=== PATIENT | male | born 1960 | race Caucasian/White ===

== ENCOUNTER 2019-01-30 09:28 | Inpatient (IN) | payer MEDICAID, OTHER ==
[~2019-01-30] VITALS: Ht 172.7 cm; Wt 61.3 kg
[2019-01-30] MEDS: methylPREDNISolone SOD SUCC 125 MG/2 ML VL IV ONE ×2 (09:48→09:50)
[2019-01-30 09:57] VITALS: BP 138/98
[2019-01-30 10:02] LABS: Basophils # (auto) 0.1 uL; Basophils % (auto) 0.9 % (0.0-2.0); Eosinophils # (auto) 0 uL; Eosinophils % (auto) 0.2 % (0.0-7.0); Hematocrit 45.2 % (41.0-53.0); Hemoglobin 15.7 g/dL (13.5-17.5); Lymphocytes # (auto) 1.6 uL; Lymphocytes % (auto) 21.6 % (10.0-50.0); Mean Corpuscular Hemoglobin 31.4 pg (28.0-32.0); Mean Corpuscular Hgb Conc. 34.8 g/dL (32.0-36.0); Mean Corpuscular Volume 90.2 fL (80.0-100.0); Monocytes # (auto) 0.5 uL; Monocytes % (auto) 7.1 % (0.0-12.0); Neutrophils # (auto) 5.3 uL; Neutrophils % (auto) 70.2 % (37.0-80.0); Nucleated Red Blood Cells % 0.1 %; Platelet Count (auto) 177 10^3/uL (140-450); Red Blood Cells 5.02 10^6/uL (4.5-5.90); Red Cell Distribution Width 13.9 % (11.8-14.3); White Blood Cell 7.6 10^3/uL (4.4-10.8)
[2019-01-30 10:20] LABS: Albumin 4.1 g/dL (3.4-5.0); Calcium 9.4 mg/dL (8.5-10.1); Magnesium 1.9 mg/dL (1.6-2.6); Potassium 3.8 mmol/L (3.5-5.1)
[2019-01-30 10:26] LABS: BUN/Creatinine Ratio 15.4; Bilirubin, Total 0.6 mg/dL (0.2-1.0); INR 0.96 (0.9-1.15)
[2019-01-30] MEDS ORDERED: MORPHINE SULFATE 4 MG/ML SYR/VIAL IV ONE (10:45)
[2019-01-30] MEDS ORDERED: ONDANSETRON HCL 4 MG/2 ML VIAL IV ONE (10:45)
[2019-01-30 11:10] VITALS: BP 116/87
[2019-01-30 11:30] VITALS: BP 116/87
[2019-01-30] MEDS ORDERED: ALBUTEROL SULF 2.5 MG/0.5ML(0.5%) NEB SOLN NEB ONE (11:30)
[2019-01-30] MEDS ORDERED: IPRATROPIUM BROM 0.5 MG/2.5ML INH SOL NEB ONE (11:30)
[2019-01-30] MEDS ORDERED: FUROSEMIDE 20 MG/2 ML VIAL IV ONE (12:00)
[2019-01-30] MEDS ORDERED: LEVOFLOXACIN 500MG 100 ML IV ONE (12:30)
[2019-01-30] MEDS ORDERED: ENOXAPARIN SOD 80 MG/0.8ML SYRINGE SC ONE (12:30)
[2019-01-30 13:22] LABS: Urine Bacteria NONE SEEN /hpf (None Seen); Urine Blood Negative /uL (Negative); Urine Hyaline Cast FEW /lpf (0 - 2); Urine Mucus FEW (None Seen); Urine Specific Gravity 1.013 (1.001-1.035); Urine WBC 2 /hpf (0 - 3)
[2019-01-30] MEDS ORDERED: ASPirin 81 mg TAB PO ONE (14:00)
[2019-01-30] MEDS ORDERED: NITROGLYCERIN 0.4 MG SL TAB SL PRN (14:00)
[2019-01-30] MEDS ORDERED: ACETAMINOPHEN 500 MG TAB PO PRN (14:00)
[2019-01-30] MEDS ORDERED: NICOTINE 21MG/24 HR TOPICAL PATCH TD ONE (14:00)
[2019-01-30] MEDS ORDERED: MORPHINE SULF INJ 2 MG/ML SYRINGE 1ML IV PRN (14:00)
[2019-01-30] MEDS ORDERED: ONDANSETRON HCL 4 MG/2 ML VIAL IV PRN (14:00)
[2019-01-30] MEDS: MORPHINE SULF INJ 2 MG/ML SYRINGE 1ML IV PRN (14:27)
[2019-01-30] MEDS: LORazepam 2MG/ML-1ML VIAL IV PRN (14:27)
[2019-01-30] MEDS: SODIUM CHLORIDE 0.9% 1,000 ML IV SCH ×2 (14:28→23:03)
--- NOTE | 2019-01-30 16:00 | NUR ---
Telemetry admit from [facility] admitted to Telemetry unit after SBAR received. Patient oriented to Josefina Ewing, primary RN, unit, room, bed, and unit policies regarding patient care and visiting hours. Patient now on continuous telemetry monitoring, tele box #[id number] and telemetry reading on arrival to unit is ST. Patient placed on bedside oxygen, weighed by bedscale and encouraged to call if they need something. All questions and concerns addressed, patient verbalized understanding.
[2019-01-30 17:00] VITALS: BP 108/69
[2019-01-30] MEDS: traMADol HCL 50 MG TAB PO PRN (17:16)
[2019-01-30] MEDS ORDERED: POTASSIUM CHL 20 Meq TABLET PO ONE (17:45)
[2019-01-30] MEDS ORDERED: MAGNESIUM OXIDE 400 MG TAB PO ONE (17:45)
--- NOTE | 2019-01-30 18:28 | NUR ---
MRSA SWAB COLLECTED FROM RIGHT AND LEFT NARES. SENT TO LAB VIA [employer] [facility].
--- NOTE | 2019-01-30 18:58 | NUR ---
CLOSING NOTE PATIENT COMFORTABLY RESTING IN BED WITH 2L NC, NO S/S OF DISTRESS/SOB NOTED. BED AT LOWEST LOCKED POSITION, BED SIDE RAILS UP X2 AND CALL LIGHT WITHIN REACH. WILL ENDORSE CARE TO NOC RN.
[2019-01-30] MEDS: BUDESONIDE (INHALATION) 0.5 MG/2 ML NEB NEB SCH (19:06)
[2019-01-30] MEDS: ALBUTEROL SULF 2.5 MG/0.5ML(0.5%) NEB SOLN NEB SCH (19:07)
[2019-01-30] MEDS: IPRATROPIUM BROM 0.5 MG/2.5ML INH SOL NEB SCH (19:07)
--- NOTE | 2019-01-30 19:40 | NUR ---
Opening Shift Note Assumed care of patient, awake and alert. No S/S of distress/SOB or pain. Instructed on POC and to call for assist PRN, will continue to monitor for changes Q1hr and PRN.
[2019-01-30] MEDS: FAMOTIDINE 20 MG TAB PO SCH (21:20)
[2019-01-30] MEDS: methylPREDNISolone SOD SUCC 40 MG/ML VL IV SCH (21:20)
[2019-01-30] MEDS: ATORVASTATIN 20 MG TAB PO SCH (21:20)
[2019-01-30 22:00] VITALS: BP 102/66
[2019-01-31] MEDS: IPRATROPIUM BROM 0.5 MG/2.5ML INH SOL NEB SCH ×4 (00:56→18:52)
[2019-01-31] MEDS: ALBUTEROL SULF 2.5 MG/0.5ML(0.5%) NEB SOLN NEB SCH ×4 (00:57→18:52)
[2019-01-31 05:00] VITALS: BP 109/78
[2019-01-31] MEDS ORDERED: GABA100C9 PO (05:07)
[2019-01-31] MEDS ORDERED: ASPI-404 PO (05:07)
[2019-01-31] MEDS ORDERED: ASPI325T4 PO (05:07)
[2019-01-31] MEDS ORDERED: LORA0.5T12 PO (05:07)
[2019-01-31] MEDS ORDERED: MET25T PO (05:07)
[2019-01-31] MEDS ORDERED: ESCI10TA PO (05:07)
[2019-01-31] MEDS ORDERED: ALBU108A5 INH (05:07)
[2019-01-31] MEDS ORDERED: OMEP20TA PO (05:07)
[2019-01-31] MEDS ORDERED: BACL10TA PO (05:07)
[2019-01-31] MEDS ORDERED: FURO1TAB33 PO (05:07)
[2019-01-31] MEDS ORDERED: POTA-167 PO (05:07)
[2019-01-31] MEDS ORDERED: ALBU0.5N2 INH (05:07)
[2019-01-31] MEDS ORDERED: LORA1TAB12 PO (05:07)
[2019-01-31] MEDS ORDERED: DOCU100T15 PO (05:07)
[2019-01-31 06:21] LABS: Basophils # (auto) 0 uL; Basophils % (auto) 0.6 % (0.0-2.0); Eosinophils # (auto) 0 uL; Hematocrit 42.5 % (41.0-53.0); Hemoglobin 14.8 g/dL (13.5-17.5); Lymphocytes # (auto) 0.8 uL; Lymphocytes % (auto) 11.6 % (10.0-50.0); Mean Corpuscular Hemoglobin 30.8 pg (28.0-32.0); Mean Corpuscular Hgb Conc. 34.8 g/dL (32.0-36.0); Mean Corpuscular Volume 88.5 fL (80.0-100.0); Monocytes # (auto) 0.4 uL; Monocytes % (auto) 5.1 % (0.0-12.0); Neutrophils # (auto) 5.9 uL; Neutrophils % (auto) 82.7 % (37.0-80.0); Platelet Count (auto) 210 10^3/uL (140-450); Red Cell Distribution Width 14.2 % (11.8-14.3); White Blood Cell 7.1 10^3/uL (4.4-10.8)
[2019-01-31 06:33] LABS: Potassium 4.4 mmol/L (3.5-5.1)
[2019-01-31] MEDS: BUDESONIDE (INHALATION) 0.5 MG/2 ML NEB NEB SCH ×2 (06:34→18:53)
[2019-01-31 06:38] LABS: BUN/Creatinine Ratio 23.5; Calcium 9.3 mg/dL (8.5-10.1)
--- NOTE | 2019-01-31 07:20 | NUR ---
Care report given to Raphael Sanchez, NPO maintained for stress test today.
--- NOTE | 2019-01-31 07:40 | NUR ---
OPENING SHIFT NOTE: PATIENT ASLEEP, BREATHING EVEN AND UNLABORED, NASAL CANNULA IN PLACE. HERNANDEZ HUNG BELOW BLADDER, DRAINING, AND FREE OF KINKS. BED ALARM ON, AND BED IN LOWEST LOCKED POSITION. CALL LIGHT WITHIN REACH. WILL CONTINUE TO MONITOR.
[2019-01-31] MEDS ORDERED: DOBUTamine 1000MCG/ML 100 ML IV ONE (08:32)
[2019-01-31] MEDS: cefTRIAXone 1GM/50ML D5W 50 ML IV SCH (08:41)
[2019-01-31 09:00] VITALS: BP 130/60
[2019-01-31] MEDS ORDERED: ATROPINE SULF 1 MG/10ml SYR IV ONE (09:00)
--- NOTE | 2019-01-31 09:13 | NUR ---
PATIENT TAKEN DOWN BY HOSPITAL BED TO STRESS LAB.
[2019-01-31 09:41] VITALS: BP 116/77
--- NOTE | 2019-01-31 11:08 | NUR ---
PATIENT BACK IN ROOM. DR. HILL AT BEDSIDE.
[2019-01-31] MEDS: MORPHINE SULF INJ 2 MG/ML SYRINGE 1ML IV PRN ×3 (11:26→20:36)
[2019-01-31] MEDS: methylPREDNISolone SOD SUCC 40 MG/ML VL IV SCH ×2 (11:26→22:21)
[2019-01-31] MEDS: FAMOTIDINE 20 MG TAB PO SCH ×2 (11:26→22:21)
[2019-01-31] MEDS: ASPirin 81 mg TAB PO SCH (11:27)
[2019-01-31] MEDS: AZITHROMYCIN 500MG/ 250ML 250 ML IV SCH (11:27)
[2019-01-31] MEDS: NICOTINE 21MG/24 HR TOPICAL PATCH TD SCH (11:28)
--- NOTE | 2019-01-31 11:47 | NUR ---
RT AT BEDSIDE, PATIENT RECEIVING BREATHING TREATMENT.
--- NOTE | 2019-01-31 11:48 | NUR ---
RESPIRATORY CULTURE SENT WITH FREEZER TUNNEL OPERATOR.
[2019-01-31 13:09] VITALS: BP 131/81
[2019-01-31] MEDS: traMADol HCL 50 MG TAB PO PRN (14:40)
[2019-01-31] MEDS: LORazepam 2MG/ML-1ML VIAL IV PRN (16:34)
[2019-01-31 17:32] VITALS: BP 128/84
--- NOTE | 2019-01-31 17:34 | NUR ---
PATIENT REQUESTED THAT P.T. BE DONE TOMORROW.
--- NOTE | 2019-01-31 18:21 | NUR ---
CLOSING SHIFT NOTE: PATIENT RESTING IN BED. BREATHING EVEN AND UNLABORED. BED IN LOWEST LOCKED POSITION. EDUCATED PATIENT HOW TO USE ROOM PHONE TO CALL FAMILY. PATIENT ABLE TO GET A HOLD OF FAMILY. DENIED WANTING TO INPUT PHONE NUMBERS IN THE MEDICAL RECORD FOR HOSPITAL USE. HERNANDEZ HUNG BELOW BLADDER, FREE OF KINKS. NO COMPLAINTS OF PAIN AT THIS TIME. WILL ENDORSE CARE TO NOC RN.
--- NOTE | 2019-01-31 19:22 | NUR ---
CARE ENDORSED TO THEODORE CAN
[2019-01-31 22:00] VITALS: BP 109/75
[2019-01-31] MEDS: ATORVASTATIN 20 MG TAB PO SCH (22:21)
[2019-02-01] MEDS: LORazepam 2MG/ML-1ML VIAL IV PRN ×3 (00:34→21:05)
[2019-02-01] MEDS: MORPHINE SULF INJ 2 MG/ML SYRINGE 1ML IV PRN ×5 (00:34→21:05)
[2019-02-01 05:00] VITALS: BP 105/75
[2019-02-01] MEDS: IPRATROPIUM BROM 0.5 MG/2.5ML INH SOL NEB SCH ×3 (07:05→18:08)
[2019-02-01] MEDS: BUDESONIDE (INHALATION) 0.5 MG/2 ML NEB NEB SCH ×2 (07:05→18:09)
[2019-02-01] MEDS: ALBUTEROL SULF 2.5 MG/0.5ML(0.5%) NEB SOLN NEB SCH ×3 (07:05→18:08)
--- NOTE | 2019-02-01 07:20 | NUR ---
SHIFT CLOSING NOTE. ENDORSED CARE OF PATIENT TO DAY SHIFT, JUAN JOSÉ ZURITA.
--- NOTE | 2019-02-01 07:26 | NUR ---
OPENING SHIFT NOTE: PATIENT AWAKE IN BED, RECEIVING BREATHING TREATMENT. RESPIRATIONS EVEN AND UNLABORED. HERNANDEZ HUNG BELOW BLADDER, DRAINING, AND FREE OF KINKS. BED IN LOWEST LOCKED POSITION. IV PATENT, SALINE FLUSHED. CALL LIGHT WITHIN REACH. WILL CONTINUE TO MONITOR.
[2019-02-01 09:00] VITALS: BP 111/59
[2019-02-01] MEDS: methylPREDNISolone SOD SUCC 40 MG/ML VL IV SCH ×2 (10:06→22:20)
[2019-02-01] MEDS: cefTRIAXone 1GM/50ML D5W 50 ML IV SCH (10:06)
[2019-02-01] MEDS: AZITHROMYCIN 500MG/ 250ML 250 ML IV SCH (10:06)
[2019-02-01] MEDS: ASPirin 81 mg TAB PO SCH (10:06)
[2019-02-01] MEDS: FAMOTIDINE 20 MG TAB PO SCH ×2 (10:06→22:20)
[2019-02-01] MEDS: NICOTINE 21MG/24 HR TOPICAL PATCH TD SCH (10:07)
--- NOTE | 2019-02-01 11:36 | NUR ---
Initial Nutrition Assessment: See Interventions for details Estimated needs based on CBW 63.7 kg-increased factors for COPD, PNA, wt maintenance 7493-6245 kcal (27-30 kcal/kg) 64-76 g protein (1.0-1.2 g/kg) Addendum: 02/01/19 at [address] Amended: Links added.
--- NOTE | 2019-02-01 11:37 | NUR ---
HERNANDEZ CATHETER DISCONTINUED. 10 ML OF WATER RETURNED FROM BALLOON. 300 ML OF LIGHT CECY IN HERNANDEZ BAG. PATIENT VOIDED UNMEASURABLE, SMALL YELLOW AMOUNT ON A WASHCLOTH. PROVIDED PATIENT WITH URINAL. PATIENT REQUESTING ASSISTANCE FOR USE, THIS RN EDUCATED PATIENT TO INITIATE SELF-CARE.
[2019-02-01 13:00] VITALS: BP 107/65
--- NOTE | 2019-02-01 14:19 | NUR ---
assessment Patient is a 58 year old male who is alert and oriented. Prior to admission patient resided at a board and care in [place]. Patient does not know the name of facility. Per patient he was on service with [facility] hospice [phone] and functioned with hospice assistance. Per patient he has a hospital bed, wheelchair, and home 02 provided by hospice. Per patient he wants to resume with [facility] hospice on discharge. Per patient he will need a new board and care and hospice will provide placement. I informed patient he has a right to speak to a social professionals regarding all care. I informed patient he has a right to participate in any and all discharge planning. Patient does not have a POA and advanced directive. I have offered patient information on POA and advanced directives. I informed the patient the advantages and benefits of having an Advanced Directive. Patient verbalized understanding and agreed to discharge plan. Addendum: 02/01/19 at 1426 by Radha HUTCHINSON Amended: Links added.
--- NOTE | 2019-02-01 15:36 | NUR ---
D/C planning Per consult to resume hospice with [facility] Ph:) Fax:). Contacted [facility] hospices and faxed medical records. Per global transportation manager Nisha from [facility]:) referral was received and placement will be arrange tomorrow morning. Addendum: 02/01/19 at 1538 by MICHELLE YU Amended: Links added.
--- NOTE | 2019-02-01 16:16 | NUR ---
DR. MUNSON AT BEDSIDE. NEW ORDERS GIVEN.
--- NOTE | 2019-02-01 16:21 | NUR ---
HOUSE MIX CHEMIST LANA AWARE OF DR. MUNSON'S REQUEST TO PUT PATIENT ON MORNING PROJECT INTERN SCHEDULE.
[2019-02-01] MEDS ORDERED: CLOPIDOGREL 300 MG TAB PO ONE (16:30)
--- NOTE | 2019-02-01 17:00 | NUR ---
PATIENT WORKING WITH PHYSICAL THERAPY, AND IS UP IN CHAIR. VS STABLE, RESTING WITH NO SIGNS OF DISTRESS. COMPLAINING OF PAIN AT THIS TIME. WILL MEDICATE ORDERED.
[2019-02-01 17:08] VITALS: BP 133/105
--- NOTE | 2019-02-01 17:21 | NUR ---
CONSENTS SIGNED AND PLACED IN HARD CHART.
--- NOTE | 2019-02-01 18:00 | NUR ---
PT EVAL COMPLETE: PATIENT BACK IN BED. NO DISTRESS NOTED EVEN AND UNLABORED RESPIRATIONS. CALL LIGHT WITHIN REACH, PATIENT VERBALIZED UNDERSTANDING.
--- NOTE | 2019-02-01 18:12 | NUR ---
RT NOTE PT WAS SEEN BY RT FOR HHN TX. PT TOLERATES WELL VIA MASK. PT C/O CHEST PAIN. HE STATES HE ALREADY TOLD RN. NO ADVERSE REACTION NOTED. PT FOUND ON 3L NASAL CANNULA. PT STATES HE WEARS 4L NASAL CANNULA AT HOME. CONT ORDERED. POX 99% Addendum: 02/01/19 at 1814 by Maryana Duarte RT Amended: Links added.
--- NOTE | 2019-02-01 18:32 | NUR ---
CLOSING SHIFT NOTE: PATIENT RESTING IN BED, RECEIVING BREATHING TREATMENT. BREATHING EVEN AND UNLABORED. ADDRESSED ALL CONCERNS. BED IN LOWEST LOCKED POSITION. CALL LIGHT WITHIN REACH. WILL ENDORSE CARE TO NOC RN.
--- NOTE | 2019-02-01 19:15 | NUR ---
CARE ENDORSED TO THEODORE CAN.
--- NOTE | 2019-02-01 19:30 | NUR ---
Opening Shift Note Assumed care of patient, awake and alert. No S/S of distress. C/O pain to upper and lower back, will give pain medication when available, repositioned for comfort and gave warm pack. Instructed on POC and to call for assist PRN, will continue to monitor for changes Q1hr and PRN.
[2019-02-01 22:00] VITALS: BP 111/73
[2019-02-01] MEDS: ATORVASTATIN 20 MG TAB PO SCH (22:20)
[2019-02-02] MEDS: MORPHINE SULF INJ 2 MG/ML SYRINGE 1ML IV PRN ×5 (01:02→20:21)
[2019-02-02 05:00] VITALS: BP 105/71
[2019-02-02] MEDS: LORazepam 2MG/ML-1ML VIAL IV PRN ×2 (05:12→16:15)
[2019-02-02] MEDS: IPRATROPIUM BROM 0.5 MG/2.5ML INH SOL NEB SCH ×3 (07:11→18:51)
[2019-02-02] MEDS: ALBUTEROL SULF 2.5 MG/0.5ML(0.5%) NEB SOLN NEB SCH ×3 (07:11→18:51)
[2019-02-02] MEDS: BUDESONIDE (INHALATION) 0.5 MG/2 ML NEB NEB SCH ×2 (07:11→18:52)
--- NOTE | 2019-02-02 07:30 | NUR ---
SHIFT CLOSING NOTE. ENDORSED CARE OF PATIENT TO DAY SHIFT, JUAN JOSÉ PARADA.
--- NOTE | 2019-02-02 07:45 | NUR ---
PATIENT ROUNDS PATIENT LYING IN BED, NO DISTRESS NOTED. BED IN LOWEST POSITION, SIDE RAILS UP X2, CALL LIGHT WITHIN REACH. WILL CONTINUE TO MONITOR.
--- NOTE | 2019-02-02 08:25 | NUR ---
PATIENT OFF UNIT FOR [employer]SENTS SIGNED CHECKLIST COMPLETE AND BOTH IVS PATENT AND BENIGN, PATIENT TRANSPORTED ON 2L O2. NO DISTRESS UPON DEPARTURE.
[2019-02-02 08:38] VITALS: BP 105/71
[2019-02-02 09:00] VITALS: BP 109/73
[2019-02-02] MEDS: cefTRIAXone 1GM/50ML D5W 50 ML IV SCH (09:00)
[2019-02-02] MEDS ORDERED: IOHEXOL 350 MG/ML 100ML IJ ONE (09:13)
[2019-02-02] MEDS ORDERED: LIDOCAINE 2%HCL (LOCAL ANESTH.) INJ 20ML MDV ONE (09:13)
[2019-02-02] MEDS ORDERED: fentaNYL CITRATE 100 MCG/2 ML VL ONE (09:32)
[2019-02-02] MEDS ORDERED: MIDAZOLAM HCL 1MG/1ML-2 ML VIAL ONE (09:32)
[2019-02-02] MEDS ORDERED: SODIUM CHL 0.9% 0 ML ONE (09:35)
[2019-02-02] MEDS ORDERED: ANGIOMAX 250 MG VIAL IV ONE (09:35)
[2019-02-02] MEDS: FAMOTIDINE 20 MG TAB PO SCH ×2 (10:00→21:33)
[2019-02-02] MEDS: CLOPIDOGREL BISULFATE 75 MG TAB PO SCH (10:00)
[2019-02-02] MEDS: NICOTINE 21MG/24 HR TOPICAL PATCH TD SCH (10:00)
[2019-02-02] MEDS: ASPirin 81 mg TAB PO SCH (10:00)
[2019-02-02] MEDS ORDERED: ENOXAPARIN SOD 60 MG/0.6 ML SYRINGE SC SCH (10:00)
--- NOTE | 2019-02-02 11:08 | NUR ---
PT 1st AM visit, RN said patient was sent to lab asst. 2nd AM visit, patient still not back from lab asst. Addendum: 02/02/19 at 1109 by CARMELLA ALCALA PTT Amended: Links added.
--- NOTE | 2019-02-02 11:57 | NUR ---
PATIENT BACK ON UNIT, PATIENT ASKING FOR PAIN MEDICATION. WILL MEDICATE FOR PAIN PER MD ORDERS.
[2019-02-02] MEDS: predniSONE 20 MG TAB PO SCH (12:08)
[2019-02-02] MEDS: AZITHROMYCIN 250 MG TAB PO SCH (12:08)
[2019-02-02 13:00] VITALS: BP 117/72
--- NOTE | 2019-02-02 13:33 | NUR ---
PT Patient just got back from mobile home laborer and RN requested to defer PT for today due to procedure done. Addendum: 02/02/19 at 1335 by CARMELLA ALCALA PTT Amended: Links added.
--- NOTE | 2019-02-02 15:13 | NUR ---
D/C Planning Followed up call to [facility] Ph:( [phone]) spoke to VICENTA Cameron. Per VICENTA Cameron from [facility] Pt will be going to a rooming board in [place] address [address] [place] [address]. Advised VICENTA Cameron from [facility] Pt will be discharging tomorrow 02/03/19. Contacted [facility] transport Ph:) spoke to Merline. Advised Merline from [facility] transport to arrange transportation for 02/03/19 at 12 noon via gurney with oxygen.
[2019-02-02 17:00] VITALS: BP 111/86
--- NOTE | 2019-02-02 20:00 | NUR ---
Opening Shift Note Assumed care of patient, awake and alert. No S/S of distress/SOB. Patient complains of chronic back pain. S/P angiogram; dressing to right groin clean, dry and intact. Instructed on POC and to call for assist PRN, will continue to monitor for changes Q1hr and PRN. Bed in low position with brakes locked. Call light in reach.
--- NOTE | 2019-02-02 20:15 | NUR ---
Patient awake requesting pain medication for back pain 9/10 on 1-10 pain scale. Patient medicated with Morphine 2 mg IVP. He states he will be awake each time his pain medication is due and wanted Ativan with the next dose of Morphine.
[2019-02-02] MEDS: ATORVASTATIN 20 MG TAB PO SCH (21:33)
[2019-02-02 22:00] VITALS: BP 124/78
[2019-02-03] MEDS: LORazepam 2MG/ML-1ML VIAL IV PRN ×2 (00:05→10:32)
[2019-02-03] MEDS: MORPHINE SULF INJ 2 MG/ML SYRINGE 1ML IV PRN ×3 (00:17→08:41)
[2019-02-03] MEDS: ALBUTEROL SULF 2.5 MG/0.5ML(0.5%) NEB SOLN NEB SCH ×2 (00:59→06:50)
[2019-02-03] MEDS: IPRATROPIUM BROM 0.5 MG/2.5ML INH SOL NEB SCH ×2 (00:59→06:50)
[2019-02-03 05:00] VITALS: BP 120/76
[2019-02-03] MEDS: BUDESONIDE (INHALATION) 0.5 MG/2 ML NEB NEB SCH (06:50)
--- NOTE | 2019-02-03 07:00 | NUR ---
Patient resting comfortably. No distress noted. Report given to day shift RN.
--- NOTE | 2019-02-03 07:01 | NUR ---
Patient resting comfortably. No distress noted. Report given to day shift RN.
--- NOTE | 2019-02-03 07:30 | NUR ---
Opening Shift Note Assumed care of patient, awake, alert, and oriented x4. No S/S of distress/SOB, but patient reports generalized body pain of 10/10. IV is in right and left hand both 20 gauges, asymptomatic, patent, intact, and both are saline locked. Bed is locked and in lowest position and call light is within reach. Instructed on POC and to call for assist PRN, and patient verbalized understanding. Will continue to monitor for changes Q1hr and PRN.
[2019-02-03] MEDS: cefTRIAXone 1GM/50ML D5W 50 ML IV SCH (08:40)
[2019-02-03 09:00] VITALS: BP 121/71
--- NOTE | 2019-02-03 09:25 | NUR ---
PT Patient refused to be OOB or do PT during visit and stated that he is being D/C today. JUAN JOSÉ Simeon was aware of patient's refusal. Addendum: 02/03/19 at 0926 by CARMELLA ALCALA PTT Amended: Links added.
--- NOTE | 2019-02-03 09:25 | NUR ---
Physical Therapy at bedside; patient refused.
[2019-02-03] MEDS: NICOTINE 21MG/24 HR TOPICAL PATCH TD SCH (10:00)
[2019-02-03] MEDS: CLOPIDOGREL BISULFATE 75 MG TAB PO SCH (10:32)
[2019-02-03] MEDS: FAMOTIDINE 20 MG TAB PO SCH (10:33)
[2019-02-03] MEDS: AZITHROMYCIN 250 MG TAB PO SCH (10:33)
[2019-02-03] MEDS: ASPirin 81 mg TAB PO SCH (10:33)
[2019-02-03] MEDS: predniSONE 20 MG TAB PO SCH (10:33)
[2019-02-03 11:22] VITALS: BP 121/71
--- NOTE | 2019-02-03 12:00 | NUR ---
Discharge instructions given as ordered. Encourage to follow up with PMD as instructed. All questions and concerns addressed. Patient verbalized understanding. Medication reconciliation form completed and copy given to patient. IV removed with catheter intact, pressure dressing applied. Telemetry unit returned to ICU. Patient taken to transport vehicle via gurney with all personal belongings, accompanied by two transport members. No distress noted at time of departure.
== END 2019-02-03 13:35 | disposition hospice, home (50) | DRG 190 ==
LOC: EDBD 09:28 → ER 09:28 → TELE 09:29 → TELE-CENTR 16:20
PROVIDERS: ADMIT Internal Medicine; ATTEND Internal Medicine
PROC: 5A09357 Assistance with Respiratory Ventilation, Less than 24 Consecutive Hours, Continuous Positive Airway Pressure (ICD-10-PCS; principal; 2019-01-30)
PROC: 4A023N7 Measurement of Cardiac Sampling and Pressure, Left Heart, Percutaneous Approach (ICD-10-PCS; 2019-02-02)
PROC: B2111ZZ Fluoroscopy of Multiple Coronary Arteries using Low Osmolar Contrast (ICD-10-PCS; 2019-02-02)
PROC: B2151ZZ Fluoroscopy of Left Heart using Low Osmolar Contrast (ICD-10-PCS; 2019-02-02)
PROC: B2121ZZ Fluoroscopy of Single Coronary Artery Bypass Graft using Low Osmolar Contrast (ICD-10-PCS; 2019-02-02)
PROC: B2181ZZ Fluoroscopy of Left Internal Mammary Bypass Graft using Low Osmolar Contrast (ICD-10-PCS; 2019-02-02)
DX: I21.4 Non-ST elevation (NSTEMI) myocardial infarction (principal); J96.20 Acute and chronic respiratory failure, unspecified whether with hypoxia or hypercapnia; I11.0 Hypertensive heart disease with heart failure; J18.9 Pneumonia, unspecified organism; Z99.81 Dependence on supplemental oxygen; I50.9 Heart failure, unspecified; Z95.1 Presence of aortocoronary bypass graft; J44.1 Chronic obstructive pulmonary disease with (acute) exacerbation; I25.10 Atherosclerotic heart disease of native coronary artery without angina pectoris; Z88.6 Allergy status to analgesic agent; Z88.0 Allergy status to penicillin; E78.5 Hyperlipidemia, unspecified; F17.210 Nicotine dependence, cigarettes, uncomplicated; I25.5 Ischemic cardiomyopathy; I70.0 Atherosclerosis of aorta; J20.9 Acute bronchitis, unspecified; J44.0 Chronic obstructive pulmonary disease with (acute) lower respiratory infection; J98.4 Other disorders of lung; K21.9 Gastro-esophageal reflux disease without esophagitis; Z51.5 Encounter for palliative care; Z99.3 Dependence on wheelchair
CPT/HCPCS: 36415; 36600; 71045; 78452; 80048; 80053; 81001; 82805; 83605; 83735; 83880; 84484; 85025; 85610; 85730; 87040; 87070; 87081; 87205; 93005; 93017; 93306; 93459; 94640; 94660; 96361; 96365; 96375; 99291; G0378; J0696; J1956; J2250; J2405